=== PATIENT | female | born 1995 | race Caucasian/White ===

== ENCOUNTER 2022-02-03 21:31 | Observation (INO) | payer MEDICAID, OTHER ==
[~2022-02-03] VITALS: Ht 162.6 cm; Wt 88.0 kg
[2022-02-03 22:21] LABS: Urine Bacteria FEW /hpf (None Seen); Urine Blood Negative /uL (Negative); Urine Mucus FEW (None Seen); Urine Specific Gravity 1.019 (1.001-1.035); Urine WBC 7 /hpf (0 - 5)
[2022-02-03] MEDS ORDERED: PREN-96 PO (22:57)
== END 2022-02-03 23:19 | disposition home or self-care (01) ==
LOC: LDRP 21:31
PROVIDERS: ADMIT Obstetrics & Gynecology; ATTEND Obstetrics & Gynecology
DX: O26.893 Other specified pregnancy related conditions, third trimester (principal); R10.2 Pelvic and perineal pain; O23.43 Unspecified infection of urinary tract in pregnancy, third trimester; O99.343 Other mental disorders complicating pregnancy, third trimester; F41.8 Other specified anxiety disorders; F31.9 Bipolar disorder, unspecified; Z3A.33 33 weeks gestation of pregnancy; Z79.899 Other long term (current) drug therapy
CPT/HCPCS: 59025; 76805; 81001; 81002; 87210; G0378